=== PATIENT | female | born 1965 | race Caucasian/White ===

== ENCOUNTER 2017-08-17 11:34 | Day surgery (SDC) | payer OTHER ==
[2017-08-17] MEDS ORDERED: MIDAZOLAM 1 MG/ML 2 ML INJ ×2 (13:25)
[2017-08-17] MEDS ORDERED: FENTAnyl 50 MCG/ML VIAL (13:25)
== END 2017-08-17 16:11 | disposition home or self-care (01) ==
LOC: GIL 11:34
DX: Z12.11 Encounter for screening for malignant neoplasm of colon (principal); K64.8 Other hemorrhoids
CPT/HCPCS: 45378